=== PATIENT | male | born 1985 | race Caucasian/White ===

== ENCOUNTER 2021-06-18 22:35 | Emergency (ER) | payer OTHER, SELFPAY ==
[2021-06-18] VITALS (15 sets, daily range): BP systolic 113–136; BP diastolic 76–89; PULSE 64–80; RESP 18; TEMP 36.7; O2SAT 98–100
--- NOTE | 2021-06-18 22:40 | W.ED.GENAD ---
Discharge Plan Disposition [facility] Dis[facility] Condition: Stable Discharge Details Clinical Impression: Opiate withdrawal Primary Care Provider: Unknown,Unknown ED Provider: Isidro Mcdowell and New Rx's Prescriptions: Continued loperamide 2 mg Capsule 2 mg PO BID RF: 0 hydroxyzine HCl 50 mg Tablet 50 mg PO BID RF: 0 ibuprofen 600 mg Tablet 600 mg PO BID RF: 0 clonidine HCl 0.1 mg Tablet 0.1 mg PO BID RF: 0 Discharge Instructions Additional Instructions: EKG, laboratory studies, imaging studies are all unremarkable with no significant clinical abnormalities. Continue to manage opiate withdrawal with medications already on. Medical Decision Making Patient brought in from senior care by EMS with reported unresponsive event. However, by EMS report, there may have been some voluntary component to this based on their findings on initial exam. Despite not responding to sternal rub or ammonia salt, he did not drop his hand on his face nor would he allow EMS to open his eyes. Here he is awake and alert. He is clearly in opiate withdrawal. He is nonfocal. He denies alcohol or benzodiazepine abuse. He reports seizures with substance use likely cocaine amphetamine and. Vital signs are normal. We will proceed with laboratory studies, CT head, x-ray of spine. He denies any drug abuse or so we will obtain sed rate, C-reactive protein but doubt that he has epidural abscess/discitis as a cause of back pain due to discomfort along entire thoracic lumbar region. CT head negative. TLS spine x-ray negative. Laboratory studies unremarkable. White count, sed rate, CRP do not suggest infection. Potassium a little low otherwise electrolytes and LFTs are good. Patient to be discharged back into DOC custody where he may resume previous medications being used for opiate withdrawal. Lab Data Lab results reviewed: Yes I reviewed the patient's lab results. ECG Data Attestation: I personally reviewed and interpreted this ECG (s) as follows: Prior ECG tracings: not available for review Interpretation: Normal HPI General Mode of arrival: EMS. Date/Time Provider Initiated Documentation: 06/18/21 22:40. Limitations to Documentation: no limitations. Information obtained by: patient, EMS and RN notes reviewed. HPI Narrative: Patient brought in from senior care for unresponsive episode. Patient recently put in DOC custody and is withdrawing from opiates, cocaine, meth. He denies alcohol or benzo use. Reportedly found on floor unresponsive. EMS reports that patient did not respond to sternal rub or ammonia salts but did not drop hand on face and would not allow eyes to be opened. He became awake and alert in the ambulance and is oriented with normal mental status here. Complains of withdrawal symptoms, back pain. Reports having the back pain prior to going into senior care but didn't have it checked out. Also reports seizures from drug use but not from withdrawal. He is COVID negative from swabbing when first arrived at senior care. Related Data Home Medications Medication Instructions Recorded Confirmed clonidine HCl 0.1 mg PO BID 06/18/21 06/18/21 hydroxyzine HCl 50 mg PO BID 06/18/21 06/18/21 ibuprofen 600 mg PO BID 06/18/21 06/18/21 loperamide 2 mg PO BID 06/18/21 06/18/21 Allergies Allergy/AdvReac Type Severity Reaction Status Date / Time No Known Allergies Allergy Verified 06/18/21 22:57 Review of Systems Narrative: As documented in HPI otherwise negative as below. Const: no fever, weakness Resp: no cough, SOB, pleuritic pain CV: no CP, diaphoresis, edema GI: abdominal cramps, nausea, vomiting, diarrhea Neuro: no numbness, focal weakness, confusion PFSH All Active Problems Opiate withdrawal (Acute) Medical History Polysubstance abuse Surgical History S/P exploratory laparotomy S/P splenectomy Social History Smoking/Tobacco Use Status: Current every day Tobacco Type: cigarettes Smoking risk assessment performed?: Yes Alcohol Intake: never Drug use: Daily Substance use type: crack/cocaine, heroin and amphetamines Do you feel safe at home: Yes Do you feel safe in your relationship?: Yes Exam Narrative Exam Narrative: Const: WDWN male appears uncomfortable. HEENT: NC/AT. Normal facial exam. Eyes: PERRL and EOMI Neck: Supple. Trachea midline. Lungs: Normal respiratory effort. Lungs are clear. Cor: RRR without murmur/gallop. Good radial pulses. GI: Soft. NT/ND. Back: Midline tenderness along entire spine Neuro: A+O x 3. Normal speech, mentation. Cranial nerves II - XII grossly intact. No gross motor or sensory deficit. Needed to be coaxed to provide full effort. Ext: No C/C/E. Skin: Warm and dry without rash.
--- NOTE | 2021-06-18 22:45 | RT.EKG_ITS ---
APPROVED REPORT Exam: Resting ECG Reason for Exam: unresponsive event Patient Location: E HR:64 bpm ECG Measurements Heart Rate 64 AXIS TX 167 P 36 QRSd 94 QRS 54 QT 405 T 65 QTc 420 Conclusion Sinus rhythm...normal P axis, V-rate 60- 99 Normal Electrocardiogram
--- NOTE | 2021-06-18 22:45 | DI.CT_ITS ---
Exam(s) CT HEAD WO EXAM: CT HEAD WO CLINICAL HISTORY: unresponsive episode. TECHNIQUE: Imaging Protocol: Axial computed tomography images with coronal and sagittal reformatted images were created and reviewed COMPARISON: No exams were available for comparison FINDINGS: The examination is limited due to patient motion artifact. Ventricles and Extra axial spaces: Normal in size and morphology for the patient's age. Hemorrhage: None. Cerebral parenchyma: Normal. Midline shift: None. Brainstem/Cerebellum: Normal. Calvarium: Normal. Visualized Paranasal sinuses/Mastoids: Clear. Soft Tissues: Unremarkable. IMPRESSION: No acute intracranial process. RADIATION DOSE DELIVERED: 760.74mGy.cm Total DLP DATA REPOSITORY: All CT scans at this facility are submitted to the National Radiology Data Registry (NRDR) Dose Index Registry (DIR) with the [employer] ([employer]). RADIATION OPTIMIZATION: All CT scans at this facility use at least one of these dose optimization te chniques: automated exposure control; mA and/or kV adjustment per patient size (includes targeted exa ms where dose is matched to clinical indication); or iterative reconstruction.
--- NOTE | 2021-06-18 22:45 | DI.RAD_ITS ---
Exam(s) XR LUMBAR SPINE AP, LAT EXAM: XR LUMBAR SPINE AP, LAT CLINICAL HISTORY: pain. TECHNIQUE: 2D digital imaging was performed of the lumbar spine. Two images were obtained. AP and lateral views were obtained. COMPARISON: No exams were available for comparison FINDINGS: BONES: No fracture or destructive lesion. Vertebral bodies are unremarkable. No facet hypertrophy caitlin ntified. DISKS: Intervertebral disc spaces are maintained. ALIGNMENT: Lumbar spinal alignment is within normal limits. SOFT TISSUE: Normal. IMPRESSION: Unremarkable radiographs of the lumbar spine. DATA REPOSITORY: RADIATION DOSE DELIVERED:
--- NOTE | 2021-06-18 22:45 | DI.RAD_ITS ---
Exam(s) XR THORACIC SPINE COMPLETE EXAM: XR THORACIC SPINE COMPLETE CLINICAL HISTORY: pain. TECHNIQUE: 2D digital imaging was performed of the thoracic spine. To views were obtained. AP and lateral views were obtained. COMPARISON: No exams were available for comparison FINDINGS: BONES: There is no fracture or destructive lesion. The vertebral bodies and posterior elements are un remarkable. DISKS:Alignment is within normal limits. Interverebral disc spaces are maintained. SOFT TISSUE: Visualized lungs are clear. Embolization coils are seen in the left upper quadrant of th e abdomen. IMPRESSION: Unremarkable radiographs of the thoracic spine. DATA REPOSITORY: RADIATION DOSE DELIVERED:
[2021-06-18 23:37] LABS: Abs Immature Grans 0.03 10^3/uL (0.0-0.06); HCT 46.5 % (40.0-50.0); HGB 15.5 g/dL (13.5-17.5); MCH 29.2 pg (27.0-33.0); MCHC 33.3 % (32.0-36.0); MCV 87.6 fL (80-95); MPV 9.5 fL (8.0-11.0); Nucleated RBC 0 %; Platelet Count 244 10^3/uL (130-400); RBC 5.31 10^6/uL (4.36-5.78); RDW 13.1 % (11.8-14.1); RDW-SD 41.9 fL; WBC 10.63 10^3/uL (4.4-10.8)
[2021-06-18 23:42] LABS: ESR 5 mm/hr (0-15)
[2021-06-18 23:51] LABS: C-Reactive Protein 0.71 mg/dL (0.0-0.3)
[2021-06-18 23:52] LABS: Absolute Monocyte Count 1.38 10^3/uL (0.1-0.8); Absolute Neutrophil Count 7.55 10^3/uL (1.2-6.7); Atypical Lymphocytes % 6; Diff Comment Manual Differential; RBC Morphology Normal
[2021-06-18 23:53] LABS: ALT 24 U/L (16-63); AST 12 U/L (15-37); Albumin 3.7 g/dL (3.4-5.0); Alkaline Phosphatase 72 U/L (46-116); Anion Gap 8.2 mmol/L (3-11); BUN 9 mg/dL (7-18); Bilirubin, Total 0.3 mg/dL (0.2-1.0); CO2 26.8 mmol/L (21.0-32.0); CREATININE 0.8 mg/dL (0.70-1.30); Calcium 8.8 mg/dL (8.5-10.1); Chloride 103 mmol/L (98-107); Glucose 95 mg/dL (74-106); Potassium 3.1 mmol/L (3.5-5.1); Sodium 138 mmol/L (136-145); Total Protein 7.6 g/dL (6.4-8.2)
[2021-06-19] VITALS: O2SAT 100
[2021-06-19 00:01] VITALS: BP 116/72; PULSE 65
[2021-06-19 00:10] VITALS: O2SAT 99
[2021-06-19 00:16] VITALS: BP 129/78; PULSE 69
[2021-06-19 00:20] VITALS: O2SAT 100
--- NOTE | 2021-06-19 01:03 | DI.VRAD_ITS ---
PROCEDURE INFORMATION: Exam: XR Thoracic Spine Exam date and time: 06/18/2021 11:01 PM Age: 35 years old Clinical indication: Pain in thoracic spine; Other: Not specified; Prior surgery; Surgery date: 6+ months; Surgery type: Splenectomy; Patient HX: Back pain TECHNIQUE: Imaging protocol: XR of the thoracic spine. Views: 3 views. COMPARISON: No relevant prior studies available. FINDINGS: Bones/joints: Normal. No acute fracture. Normal alignment. Soft tissues: Unremarkable. Vasculature: Embolization coils in the left upper quadrant. IMPRESSION: No acute findings. Dictated and Authenticated by: Cassandra Frankel MD. Ordering:SUSAN Felix MD
--- NOTE | 2021-06-19 01:04 | DI.VRAD_ITS ---
PROCEDURE INFORMATION: Exam: CT Head Without Contrast Exam date and time: 06/18/2021 11:01 PM Age: 35 years old Clinical indication: Alteration of consciousness; Patient HX: Unresponsive episode, states no trauma TECHNIQUE: Imaging protocol: Computed tomography of the head without contrast. Radiation optimization: All CT scans at this facility use at least one of these dose optimization techniques: automated exposure control; mA and/or kV adjustment per patient size (includes targeted exams where dose is matched to clinical indication); or iterative reconstruction. COMPARISON: No relevant prior studies available. FINDINGS: Brain: Normal. No hemorrhage. Unremarkable white matter. No mass effect. Cerebral ventricles: No ventriculomegaly. Paranasal sinuses: Visualized sinuses are unremarkable. No fluid levels. Mastoid air cells: Visualized mastoid air cells are well aerated. Bones/joints: Unremarkable. No acute fracture. Soft tissues: Unremarkable. IMPRESSION: No acute intracranial abnormality. Dictated and Authenticated by: Cassandra Frankel MD. Ordering:SUSAN Felix MD
--- NOTE | 2021-06-19 01:04 | DI.VRAD_ITS ---
PROCEDURE INFORMATION: Exam: XR Lumbosacral Spine Exam date and time: 06/18/2021 11:01 PM Age: 35 years old Clinical indication: Low back pain; Prior surgery; Surgery date: 6+ months; Surgery type: Slenectomy TECHNIQUE: Imaging protocol: XR of the lumbosacral spine. Views: 2 or 3 views. COMPARISON: CR XR THORACIC SPINE COMPLETE 06/19/2021 12:47 AM FINDINGS: Bones/joints: Normal. No acute fracture. Normal alignment. Soft tissues: Unremarkable. IMPRESSION: No acute findings. Dictated and Authenticated by: Cassandra Frankel MD. Ordering:SUSAN Felix MD
== END 2021-06-19 01:20 | disposition home or self-care (01) ==
PROVIDERS: Emergency Provider Emergency Medicine
DX: F11.23 Opioid dependence with withdrawal (principal); R40.4 Transient alteration of awareness; M54.6 Pain in thoracic spine; M54.50 Low back pain, unspecified
CPT/HCPCS: 36415; 80053; 85652; 93005; 99284; 70450; 72072; 72100; 83735; 85025; 86140; 93010; 99283

== ENCOUNTER 2023-11-11 08:48 | Emergency (ER) | payer OTHER, SELFPAY ==
[2023-11-11 08:50] VITALS: BP 150/83; PULSE 72; RESP 16; TEMP 36.2; O2SAT 99
--- NOTE | 2023-11-11 09:00 | W.ED.GENAD ---
Discharge Plan Disposition [facility] Condition: Stable Discharge Details Clinical Impression: Dental infection Primary Care Provider: Unknown,Unknown ED Provider: Jamar Rollins Home Meds and New Rx's Prescriptions: New clindamycin HCl 150 mg capsule 450 mg PO TID 10 Days Qty: 90 0RF lidocaine HCl 2 % solution 1 applic mucous membrane QID PRN (Reason: dental pain) Qty: 600 0RF Rx Instructions: swish and spit with 15mL four times per day as needed prior to meals and bedtime No Action buprenorphine HCl 8 mg tablet, sublingual 16 mg sublingual DAILY ibuprofen 600 mg Tablet 600 mg PO BID Discharge Instructions Instructions: Clindamycin (By mouth), Lidocaine (Into the mouth), Dental Abscess (ED) Additional Instructions: You were seen in the emergency department for your dental infection, we checked the gums there was no palpable abscess to drain. You likely have a dental infection being caused by multiple types of bacteria 1 of which probably did not ideally treated with amoxicillin. I have upgraded your antibiotic to clindamycin, please take 3 tablets/day 3 times per day for 10 days. I have also prescribed viscous lidocaine which is a local anesthetic that you swish and spit with before mealtimes and bedtime to relieve symptoms. Please use therapeutic dosing of Tylenol (acetamenophen) & Advil (ibuprofen) in an alternating fashion as follows: Take 1000mg of Tylenol every 6 hours without missing doses- that is 4 times per day. [place] in between the Tylenol dosings, take 400-600mg of Advil also on a 6 hour schedule, that is also 4 times per day. The daily maximum dosing of Tylenol is 4000mg, and the daily maximum dosing of Advil is 2400mg. This is safe to do for weeks. Please note that some common cold medications & prescription pain medications may contain acetamenophen and you need to read OTC drug labels and factor that in to maximum daily dosings. Please return to the emergency department for any severe increase in facial and neck swelling, inability to open or close your jaw, severe muffled voice, increasing fever despite treatment. Discharge Data Discharge Date/Time-TO BE ENTERED AT DEPARTURE: 11/11/23 09:21 HPI General Date/Time Provider Initiated Documentation: 11/11/23 09:00. HPI Narrative: 38 year-old male presents to ED today by PD with a chief complaint of dental pain, mild facial swelling L upper jaw with onset for the past 3 days- has been on amoxicillin at [facility] facility for 1.5 days. Quality described as throbbing tenderness, no radiation to fever, dysphagia, trismus, vocal changes, excessive drooling, nausea/vomiting. Severity is described as severe. Palliating factors include Tylenol/ibuprofen, amoxicillin with worsening swelling. Provoking factors include known dental fractures/decay. Patient not anticoagulated. Related Data Home Medications Medication Instructions Recorded Confirmed ibuprofen 600 mg tablet 600 mg PO BID 06/18/21 11/11/23 buprenorphine HCl 8 mg sublingual 16 mg sublingual DAILY 03/09/23 11/11/23 tablet clindamycin HCl 150 mg capsule 450 mg (3 x 150 mg) PO TID dental 11/11/23 infection 10 days #90 caps lidocaine HCl 2 % mucosal solution 1 applic mucous membrane QID PRN 11/11/23 dental pain #600 mL Previous Rx's Medication Instructions Recorded clindamycin HCl 150 mg capsule 450 mg (3 x 150 mg) PO TID dental 11/11/23 infection 10 days #90 caps lidocaine HCl 2 % mucosal solution 1 applic mucous membrane QID PRN 11/11/23 dental pain #600 mL Allergies Allergy/AdvReac Type Severity Reaction Status Date / Time No Known Allergies Allergy Verified 11/11/23 08:57 General Stated Complaint: DentalOral KAMILLA: 4 Review of Systems All systems reviewed & are unremarkable except as noted in HPI and below Exam Narrative Exam Narrative: GENERAL APPEARANCE: Well-nourished, non-toxic, awake and alert, atraumatic, no acute distress. SKIN: Warm, pink, dry, intact, without rashes/lesions/ulcerations. HEAD: Normocephalic, atraumatic, normal hair distribution for gender/age. EYES: Pupils PERRLA, EOMs intact without nystagmus, normal conjunctiva, no exudates on lids/lashes. ENT: Nares patent, no circumoral cyanosis, no facial swelling, diffuse poor dentition with significant left upper dental decay, no gingival abscess to inspection or palpation, no trismus, no muffled vocal changes, no swelling in the submandibular space, managing secretions well, no facial erythema NECK: Supple, trachea midline, painless cervical ROM. LUNGS/CHEST: Lungs CTA bilaterally, non-labored respirations, normal A/P diameter, symmetrical expansion, no chest wall deformity HEART (CV/PV): Regular rate and rhythm without murmur, no peripheral edema, no JVD. ABDOMEN: Soft, non-distended, no guarding. MSK: Normal ROM, no swelling/deformity to bilateral UEs or LEs, moving all extremities without weakness, no cyanosis, spine midline without tenderness, normal curvature. NEURO: Mental Status AAOx4 - alert to person, place, time, events No facial droop, no forehead involvement. Motor: No focal weakness - strength 5/5 in bilateral UEs and LEs, proximal and distal, symmetric. Sensory: sensation intact to light touch globally. Gait normal: patient ambulated without ataxia into ED room. PSYCH: euthymic, cooperative, pleasant, appropriate speech Course Vital Signs Vital signs: Vital Signs Temperature 36.2 C L 11/11/23 08:50 Pulse 72 11/11/23 08:50 Respiratory Rate 16 11/11/23 08:50 Blood Pressure 150/83 H 11/11/23 08:50 Pulse Oximetry 99 11/11/23 08:50 Temperature 36.2 C L 11/11/23 08:50 Temperature Source Tympanic 11/11/23 08:50 Pulse 72 11/11/23 08:50 Respiratory Rate 16 11/11/23 08:50 Blood Pressure 150/83 H 11/11/23 08:50 Blood Pressure Position Sitting 11/11/23 08:50 Pulse Oximetry 99 11/11/23 08:50 Oxygen Delivery Method Room Air 11/11/23 08:50 Oxygen Flow Rate 0 11/11/23 08:50 Pain Level 3 11/11/23 08:50 Medical Decision Making This dictation utilizes [id number] dictation software and may contain unedited grammatical errors. 38 y/o M presents to ED today with a chief complaint of dental pain, ongoing for 3 days- on amoxicillin for 1.5 days with worsening L upper jaw swelling. Denies trismus, vocal changes, excessive drooling, fever, facial redness. Patients' medical history: noncontributory. Family and social history: noncontributory. Pertinent exam findings / vital signs include ENT: Nares patent, no circumoral cyanosis, no facial swelling, diffuse poor dentition with significant left upper dental decay, no gingival abscess to inspection or palpation, no trismus, no muffled vocal changes, no swelling in the submandibular space, managing secretions well, no facial erythema. Differential / pathologies of concern include dental infection, gingival abscess, not BIOMEDICAL EQUIPMENT SPECIALIST or RPA or epiglottitis. Diagnostic studies of: -None. Interventions of: -Upgraded amoxicillin to clindamycin, prescribed viscous lidocaine. ED Course/Assessment/Plan: 38-year-old male presents from correctional facility with left upper dental pain with chronic dental fractures and DKA, has no visible gingival abscess, no trismus, no vocal changes, no facial redness or fever. Plan to treat with clindamycin and viscous lidocaine for comfort and recommend therapeutic dosing Tylenol and ibuprofen, recommend he follow-up with dental care. Strict return criteria for excessive drooling, vocal changes, severe increase in facial swelling with fever, inability to tolerate p.o. intake. Findings not consistent with BIOMEDICAL EQUIPMENT SPECIALIST or RPA or epiglottitis, severe facial cellulitis, sepsis. Disposition of dental infection. Patient verbalized understanding of the plan and return to ED criteria and engaged in shared decision making. Medical Records Medical records reviewed: Yes I reviewed the patient's medical records. Quality:SDOH Health Related Social Needs: No Data to Display PFSH All Active Problems (Updated 11/11/23 @ 09:07 by MING Meraz) Dental infection (Acute) Mental health disorder (Acute) Polysubstance abuse (Acute) On medication assisted therapy (03/09/23) Hepatitis C (Chronic) Surgical History S/P exploratory laparotomy S/P splenectomy Social History Smoking/Tobacco Use Status: Current every day Tobacco Type: cigarettes Smoking risk assessment performed?: Yes Alcohol Intake: never Drug use: Daily Substance use type: crack/cocaine, heroin and amphetamines Do you feel safe at home: Yes Do you feel safe in your relationship?: Yes
== END 2023-11-11 09:21 ==
LOC: ER 09:10
PROVIDERS: Emergency Provider Physician Assistant
DX: K08.89 Other specified disorders of teeth and supporting structures (principal); K04.7 Periapical abscess without sinus; F17.210 Nicotine dependence, cigarettes, uncomplicated
CPT/HCPCS: 99283